=== PATIENT | male | born 1995 | race Two or more races ===

== ENCOUNTER 2020-12-22 20:20 | Emergency (ER) | payer OTHER ==
[~2020-12-22] VITALS: Ht 170.2 cm; Wt 81.6 kg
[2020-12-22] MEDS ORDERED: ZITHROMAX500 MG PO (23:11)
== END 2020-12-22 23:31 | disposition home or self-care (01) ==
LOC: ER 20:20
DX: J06.9 Acute upper respiratory infection, unspecified (principal); J02.9 Acute pharyngitis, unspecified; Z03.818 Encounter for observation for suspected exposure to other biological agents ruled out